=== PATIENT | male | born 1950 | race Caucasian/White ===

== ENCOUNTER 2017-01-06 10:13 | Emergency (ER) | payer MEDICARE, MEDICAID ==
[2017-01-06] MEDS ORDERED: Sodium Chloride 0.9% 10 ML Syringe FLUSH PRN (11:16)
[2017-01-06] MEDS ORDERED: Ketorolac 30 MG/ML SDV IVPUSH ONE (11:16)
[2017-01-06] MEDS ORDERED: HYDROmorphone 1 MG/ML Syringe IVPUSH ONE (11:16)
--- NOTE | 2017-01-06 11:23 | EDM.PDOC ---
ED HPI GENERAL MEDICAL PROBLEM - General Chief Complaint: Back Pain or Injury Stated Complaint: Low back pain Time Seen by Provider: 01/06/17 11:05 Source of Information: Reports: Patient, RN Notes Reviewed History Limitations: Reports: No Limitations - History of Present Illness INITIAL COMMENTS - FREE TEXT/NARRATIVE: 66 year old male presents to the ED with complaints of low back pain that does not radiate. He had low back surgery with Dr. Samayoa on 12/19/16. He's had severe pain since his surgery. He had a f/u on 01/02/17 and was told everything was good. He is currently taking Dilaudid 2mg every 6 hours and Valium 5mg every 8 hours. He last took these around 6am this morning. He has no numbness, tingling or weakness in his lower extremities. Denies saddle anesthesia or loss of bowel/ bladder function. He is able to ambulate without difficulty. Pain seems to be better when he's standing. He has an appointment the beginning of january. No fever or chills. Lower Back Pain Score (Numeric/FACES): 10 - Related Data Allergies Allergy/AdvReac Type Severity Reaction Status Date / Time codeine Allergy Cannot Verified 01/06/17 10:35 Remember Home Meds: Home Meds Lisinopril/Hydrochlorothiazide [Lisinopril-Hctz 10-12.5 mg Tab] 0 mg PO DAILY [History] Aspirin [Halfprin] 81 mg PO DAILY 03/15/15 [History] Diazepam [Valium] 5 mg PO Q6H PRN #10 tablet 01/06/17 [Rx] Diazepam [Valium] 5 mg PO Q8H PRN 01/06/17 [History] HYDROmorphone [Dilaudid] 2 mg PO Q4H #10 tablet 01/06/17 [Rx] HYDROmorphone [Dilaudid] 2 mg PO Q6H PRN 01/06/17 [History] atorvaSTATin [Lipitor] 1 tab PO DAILY 01/06/17 [History] Past Medical History Cardiovascular History: Reports: High Cholesterol, Hypertension - Past Surgical History GI Surgical History: Reports: Appendectomy Musculoskeletal Surgical History: Reports: Other (See Below) Other Musculoskeletal Surgeries/Procedures:: spinal fusion Social & Family History - Tobacco Use Smoking Status *Q: Never Smoker Years of Tobacco use: 40 Used Tobacco, but Quit: Yes Month Tobacco Last Used: 8 yrs Second Hand Smoke Exposure: No - Caffeine Use Caffeine Use: Reports: Coffee, Soda - Recreational Drug Use Recreational Drug Use: No Drug Use in Last 12 Months: Yes Recreational Drug Type: Reports: Marijuana/Hashish Recreational Drug Use Frequency: Rarely Recreational Drug Last Use: 11/03/13 ED ROS GENERAL - Review of Systems Review Of Systems: See Below Constitutional: Reports: No Symptoms. Denies: Fever, Chills Respiratory: Reports: No Symptoms Cardiovascular: Reports: No Symptoms Musculoskeletal: Reports: Back Pain, Muscle Pain Skin: Reports: Wound Neurological: Denies: Numbness, Tingling, Difficulty Walking, Weakness ED EXAM,LOWER BACK PAIN/INJURY - Physical Exam Exam: See Below Exam Limited By: No Limitations General Appearance: Alert, WD/WN, Anxious, Moderate Distress Respiratory/Chest: No Respiratory Distress, Lungs Clear Cardiovascular: Regular Rate, Rhythm Back Exam: Normal Inspection, Muscle Spasm, Paraspinal Tenderness. No: Vertebral Tenderness Extremities: Normal Inspection, Normal Range of Motion, Non-Tender Neurological: Alert, Normal Dorsiflexion, Normal Plantar Flexion, Normal Gait, No Motor/Sensory Deficits, Other (surgical incision is well approximated with no erytema or drainage. No tenderness at incision site. ). No: Straight Leg Raise (L), Straight Leg Raise (R), Saddle Anesthesia, Difficulty Walking Skin Exam: Warm, Dry, Intact Course - Vital Signs Last Recorded V/S: Last Vital Signs Temp 98 F 01/06/17 10:21 Pulse 69 01/06/17 10:21 Resp 18 01/06/17 10:21 BP 144/70 H 01/06/17 10:21 Pulse Ox 99 01/06/17 10:21 - Orders/Labs/Meds Orders: Active Orders 24 hr Category Date Time Status Peripheral IV Care [RC] . DIRECTED Care 01/06/17 11:16 Active Sodium Chloride 0.9% [Saline Flush] Med 01/06/17 11:16 Active 10 ml FLUSH ASDIRECTED PRN Peripheral IV Insertion Adult [OM.PC] Stat Oth 01/06/17 11:15 Ordered Medication Orders Sodium Chloride (Saline Flush) 10 ml FLUSH ASDIRECTED PRN PRN Reason: Keep Vein Open Last Admin: 01/06/17 11:41 Dose: 10 ml Meds: Medications Generic Name Dose Route Start Last Admin Trade Name Kennyq PRN Reason Stop Dose Admin Sodium Chloride 10 ml 01/06/17 11:16 01/06/17 11:41 Saline Flush FLUSH 10 ml ASDIRECTED PRN Administration Keep Vein Open Discontinued Medications Generic Name Dose Route Start Last Admin Trade Name Kennyq PRN Reason Stop Dose Admin Diazepam 5 mg 01/06/17 11:16 01/06/17 11:39 Valium IM 01/06/17 11:17 5 mg ONETIME ONE Administration Hydromorphone HCl 1 mg 01/06/17 11:16 01/06/17 11:34 Dilaudid IVPUSH 01/06/17 11:17 1 mg ONETIME ONE Administration Hydromorphone HCl 1 mg 01/06/17 12:12 01/06/17 12:20 Dilaudid IVPUSH 01/06/17 12:13 1 mg ONETIME STA Administration Ketorolac Tromethamine 30 mg 01/06/17 11:16 01/06/17 11:32 Toradol IVPUSH 01/06/17 11:17 30 mg ONETIME ONE Administration Ketorolac Tromethamine Confirm 01/06/17 11:26 01/06/17 11:39 Toradol Administered 01/06/17 11:27 Not Given Dose 90 mg .ROUTE .STK-MED ONE - Re-Assessments/Exams Free Text/Narrative Re-Assessment/Exam: On arrival, patient's pain was 10/10. Pain improved to acceptable level, 6/10 after 2mg of Dilaudid, Toradol, and Valium. Will have him start a schedule with his dilaudid and valium. He was given a small prescription for Dilaudid and Valium to get him through until he can be seen in the clinic. He was instructed to f/u with Dr. Samayoa or Dolores Mock, whoever can see him first. Discharge instructions as documented. Departure - Departure Time of Disposition: 12:26 Disposition: Home, Self-Care 01 Condition: Good Clinical Impression: Postoperative back pain - Discharge Information Prescriptions: Diazepam [Valium] 5 mg PO Q6H PRN #10 tablet PRN Reason: Muscle Spasm HYDROmorphone [Dilaudid] 2 mg PO Q4H #10 tablet Referrals: Dolores Mock PA [Primary Care Provider] - Forms: ED Department Discharge Additional Instructions: Call Dr. Samayoa's office and update them regarding your pain Follow-up with them this week and/or with Dolores Samples for medication refills as needed Return to ER if you are unable to manage your pain Recommended day schedule: Dilaudid 2mg every 4 hours: take at 8am, noon, 4pm, 8pm. Valium 5mg every 6 hours: take at 6am, noon, and 6pm Continue with post-operative instructions. - My Orders Last 24 Hours: My Active Orders 01/06/17 11:15 Peripheral IV Insertion Adult [OM.PC] Stat 01/06/17 11:16 Peripheral IV Care [RC] . DIRECTED Sodium Chloride 0.9% [Saline Flush] 10 ml FLUSH ASDIRECTED PRN - Assessment/Plan Last 24 Hours: My Active Orders 01/06/17 11:15 Peripheral IV Insertion Adult [OM.PC] Stat 01/06/17 11:16 Peripheral IV Care [RC] . DIRECTED Sodium Chloride 0.9% [Saline Flush] 10 ml FLUSH ASDIRECTED PRN
[2017-01-06] MEDS ORDERED: Ketorolac 30 MG/ML SDV ONE (11:26)
[2017-01-06] MEDS ORDERED: HYDROmorphone 1 MG/ML Syringe IVPUSH STA (12:12)
[2017-01-06 13:16] VITALS: BP 137/70
== END 2017-01-06 12:45 | disposition home or self-care (01) ==
LOC: JD.ED 10:13
DX: G89.18 Other acute postprocedural pain (principal); M54.5 Low back pain; I10 Essential (primary) hypertension; E78.00 Pure hypercholesterolemia, unspecified; Z90.49 Acquired absence of other specified parts of digestive tract; Z98.1 Arthrodesis status; Z79.82 Long term (current) use of aspirin; Z79.899 Other long term (current) drug therapy; Z88.5 Allergy status to narcotic agent
CPT/HCPCS: 96372; 96374; 96375; 96376; 99283; J1170; J1885; J3360; J7050

== ENCOUNTER 2017-04-15 08:46 | Day surgery (SDC) | payer MEDICARE, MEDICAID ==
[2017-04-15] MEDS: Polymyxin B/Trimethoprim 10 ML Bottle EYELF SCH ×4 (09:55→11:46)
[2017-04-15] MEDS: Brimonidine 0.2% Ophth Soln 5 ML Bottle EYELF SCH ×3 (10:00→11:46)
[2017-04-15] MEDS: Phenylephrine 2.5% Ophth Soln 2 ML Bot EYELF SCH ×6 (10:08→11:24)
--- NOTE | 2017-04-15 10:39 | PCM.PREANE ---
Preanesthetic Assessment - Anesthesia/Transfusion/Family Hx Anesthesia History: Prior Anesthesia Without Reaction Family History of Anesthesia Reaction: No Transfusion History: No Prior Transfusion(s) Intubation History: Unknown - Review of Systems General: No Symptoms Pulmonary: No Symptoms (on occasion smokes marijuana for back pain) Cardiovascular: No Symptoms (HTN) Gastrointestinal: No Symptoms Neurological: No Symptoms (chronic lower back pain/ mini stroke 4 years ago) Other: Reports: Easy Bruising, Depression - Physical Assessment NPO Status Date: 04/15/17 NPO Status Time: 05:30 Pulse: 64 O2 Sat by Pulse Oximetry: 98 Respiratory Rate: 16 Blood Pressure: 136/70 Temperature: 36.6 C Vital Signs: Last Vital Signs Temp 36.6 C 04/15/17 09:38 Pulse 64 04/15/17 09:38 Resp 16 04/15/17 09:38 BP 136/70 04/15/17 09:38 Pulse Ox 98 04/15/17 09:38 Height: 18.59 m Weight: 95.254 kg ASA Class: 2 Mental Status: Alert & Oriented x3 Airway Class: Mallampati = 2 Dentition: Reports: Dentures (upper and lower not currently present with patient.) Thyro-Mental Finger Breadths: 3 Mouth Opening Finger Breadths: 3 ROM/Head Extension: Full Lungs: Clear to Auscultation, Normal Respiratory Effort Cardiovascular: Regular Rate, Regular Rhythm, No Murmurs - Allergies Allergies/Adverse Reactions: Allergies Allergy/AdvReac Type Severity Reaction Status Date / Time codeine Allergy Cannot Verified 04/14/17 14:33 Remember - Anesthesia Plan Pre-Op Medication Ordered: None - Acknowledgements Anesthesia Type Planned: MAC Pt an Appropriate Candidate for the Planned Anesthesia: Yes Alternatives and Risks of Anesthesia Discussed w Pt/Guardian: Yes Pt/Guardian Understands and Agrees with Anesthesia Plan: Yes PreAnesthesia Questionnaire Cardiovascular History: Reports: High Cholesterol, Hypertension - Past Surgical History GI Surgical History: Reports: Appendectomy Musculoskeletal Surgical History: Reports: Other (See Below) Other Musculoskeletal Surgeries/Procedures:: spinal fusion - SUBSTANCE USE Smoking Status *Q: Never Smoker Second Hand Smoke Exposure: No Recreational Drug Use History: No Recreational Drug Type: Reports: Marijuana/Hashish Recreational Drug Last Use: 11/03/13 - HOME MEDS Home Medications: Home Meds Lisinopril/Hydrochlorothiazide [Lisinopril-Hctz 10-12.5 mg Tab] 0 mg PO DAILY [History] Aspirin [Halfprin] 81 mg PO DAILY 03/15/15 [History] atorvaSTATin [Lipitor] 1 tab PO DAILY 01/06/17 [History] Cyclobenzaprine [Flexeril] 5 mg PO Q8H PRN 04/14/17 [History] Hydrocodone/Acetaminophen [Hydrocodon-Acetaminophen 5-325] 1 - 2 tab PO Q6H [History] - CURRENT (IN HOUSE) MEDS Current Meds: Current Medications Brimonidine Tartrate (Alphagan 0.2% Ophth Soln) 0 ml EYELF TID ANU Last Admin: 04/15/17 10:00 Dose: 1 drop Cefuroxime Sodium (Zinacef) 0 mg EYELF ASDIRECTED ANU Lidocaine HCl (Xylocaine-Mpf 1%) 10 ml INJECT ASDIRECTED ANU Phenylephrine HCl (Celso-Synephrine 2.5% Ophth Soln) 0 ml EYELF ASDIRECTED ANU Last Admin: 04/15/17 10:25 Dose: 1 drop Pilocarpine HCl (Pilocar 4% Ophth Soln) 0 ml EYELF ASDIRECTED ANU Polymyxin/Trimethoprim Sulfate (Polytrim Ophth Soln) 0 ml EYELF ASDIRECTED ANU Last Admin: 04/15/17 09:55 Dose: 1 drop Tetracaine HCl (Tetracaine 0.5% Steri-Unit Barby) 0 ml EYELF ASDIRECTED ANU Tropicamide (Mydriacyl 1% Ophth Soln) 0 ml EYELF ASDIRECTED AUN Stop: 04/18/17 08:39 Last Admin: 04/15/17 10:20 Dose: 1 drop
[2017-04-15] MEDS: Cefuroxime 10 MG/ML SYRINGE EYELF SCH ×2 (11:06→11:45)
[2017-04-15] MEDS: Lidocaine 1% PF 2 ML SDV INJECT SCH ×2 (11:06→11:38)
[2017-04-15] MEDS: Tetracaine HCl/PF 0.5% 4 ML Bottle EYELF SCH ×3 (11:06→11:39)
[2017-04-15] MEDS: Pilocarpine 4% Ophth Soln 15 ML Bot EYELF SCH ×2 (11:07→11:46)
--- NOTE | 2017-04-15 11:51 | PCM48HPAN ---
Post Anesthesia Note - EVALUATION WITHIN 48HRS OF ANESTHETIC Vital Signs in Normal Range: Yes Patient Participated in Evaluation: Yes Respiratory Function Stable: Yes Airway Patent: Yes Cardiovascular Function Stable: Yes Hydration Status Stable: Yes Pain Control Satisfactory: Yes Nausea and Vomiting Control Satisfactory: Yes Mental Status Recovered: Yes
[2017-04-15 12:10] VITALS: BP 143/75
== END 2017-04-15 12:00 | disposition home or self-care (01) ==
LOC: JD.SDS 08:46
PROVIDERS: ATTEND Ophthalmology
DX: H25.012 Cortical age-related cataract, left eye (principal); H11.153 Pinguecula, bilateral; H02.831 Dermatochalasis of right upper eyelid; H02.834 Dermatochalasis of left upper eyelid; I10 Essential (primary) hypertension; F32.9 Major depressive disorder, single episode, unspecified; E78.00 Pure hypercholesterolemia, unspecified; Z85.820 Personal history of malignant melanoma of skin; Z87.891 Personal history of nicotine dependence; Z79.82 Long term (current) use of aspirin; Z79.891 Long term (current) use of opiate analgesic; Z79.899 Other long term (current) drug therapy; Z90.49 Acquired absence of other specified parts of digestive tract; Z88.5 Allergy status to narcotic agent; Z98.1 Arthrodesis status; Z96.1 Presence of intraocular lens; Z98.41 Cataract extraction status, right eye
CPT/HCPCS: 66984; J0697; A9270-GY; C1780

== ENCOUNTER 2017-04-17 08:20 | Emergency (ER) | payer MEDICARE, MEDICAID ==
[2017-04-17 08:29] VITALS: BP 171/82
--- NOTE | 2017-04-17 10:09 | EDM.PDOC ---
ED HPI GENERAL MEDICAL PROBLEM - General Chief Complaint: Back Pain or Injury Stated Complaint: BACK PAIN Time Seen by Provider: 04/17/17 10:00 Source of Information: Reports: Patient History Limitations: Reports: No Limitations - History of Present Illness INITIAL COMMENTS - FREE TEXT/NARRATIVE: 66-year-old male primarily presents to the ED for chronic pain back me pain management. Shunt had lumbar spine surgery carried out by Dr. Samayoa December 23 of this year. He states he is actually worse now than he was before he had surgery. He has another follow-up appointment next week. He slipping to get some medication to help get to the pain until that time. He is set up for chronic pain management physician. He's been using Tylenol Motrin and high doses with no relief of pain. He was on Dilaudid 2 mg 4 times a day in the past. He states the pain is confined to his back and does not radiate down any extremity. His bowel and bladder function is normal. He's walking very slow. States the pain is so bad that he cannot sleep and he cannot roll over in bed. Currently not using a gait aid. Onset: Unknown/Unsure (Back pain for many years worse since surgery in December of this year.) Duration: Chronic Location: Reports: Back (Low back pain lumbar spine.He has been fused from L34 and 5 and S1.) Quality: Reports: Ache, Throbbing, Other Severity: Severe (Constant pressure intermittent sharp stabbing pain. Rates pain at rest as 6 out of 10 and with standing or prolonged sitting as 8 or 9 out of 10.) Improves with: Reports: Other Worsens with: Reports: Movement (Lying flat is usually gets some relief of pain. Sitting and standing make it worse.) Context: Reports: Activity, Other (Chronic low back pain secondary to degenerative arthritic changes and degenerative disc disease.). Denies: Exercise, Lifting, Sick Contact Associated Symptoms: Reports: No Other Symptoms Treatments [employer]: Reports: Acetaminophen, NSAIDS Back Pain Score (Numeric/FACES): 8 - Related Data Allergies Allergy/AdvReac Type Severity Reaction Status Date / Time No Known Allergies Allergy Verified 04/17/17 08:29 Home Meds: Home Meds Lisinopril/Hydrochlorothiazide [Lisinopril-Hctz 10-12.5 mg Tab] 0 mg PO DAILY 06 /18/14 [History] Aspirin [Halfprin] 81 mg PO DAILY 03/15/15 [History] atorvaSTATin [Lipitor] 1 tab PO DAILY 01/06/17 [History] Cyclobenzaprine [Flexeril] 5 mg PO Q8H PRN 04/14/17 [History] Cyclobenzaprine [Flexeril] 10 mg PO BEDTIME #30 tablet 04/17/17 [Rx] oxyCODONE HCl/Acetaminophen [Percocet 10-325 mg Tablet] 1 - 2 each PO Q6H #36 tablet 04/17/17 [Rx] Past Medical History Cardiovascular History: Reports: High Cholesterol, Hypertension Musculoskeletal History: Reports: Back Pain, Chronic - Past Surgical History GI Surgical History: Reports: Appendectomy Musculoskeletal Surgical History: Reports: Other (See Below) Other Musculoskeletal Surgeries/Procedures:: spinal fusion Social & Family History - Tobacco Use Smoking Status *Q: Never Smoker Years of Tobacco use: 40 Used Tobacco, but Quit: Yes Month Tobacco Last Used: 8 yrs Second Hand Smoke Exposure: No - Caffeine Use Caffeine Use: Reports: Coffee - Recreational Drug Use Recreational Drug Use: Yes Drug Use in Last 12 Months: Yes Recreational Drug Type: Reports: Marijuana/Hashish Recreational Drug Use Frequency: Monthly Recreational Drug Last Use: 11/03/13 - Living Situation & Occupation Living situation: Reports: with Spouse Occupation: Disabled ED ROS GENERAL - Review of Systems Review Of Systems: See Below Constitutional: Reports: Malaise, Fatigue, Weight Loss (From not getting adequate sleep.). Denies: Fever, Chills HEENT: Reports: No Symptoms Respiratory: Reports: Cough (Cough intermittently particularly in the mornings. Of note he smokes pack and half cigarettes per day.), Sputum Cardiovascular: Reports: No Symptoms Endocrine: Reports: No Symptoms GI/Abdominal: Reports: No Symptoms. Denies: Constipation : Reports: Other (Nocturia 3.) Musculoskeletal: Reports: Back Pain Skin: Reports: No Symptoms (Without radiculopathy.) Neurological: Reports: No Symptoms Psychiatric: Reports: No Symptoms Hematologic/Lymphatic: Reports: No Symptoms Immunologic: Reports: No Symptoms ED EXAM,LOWER BACK PAIN/INJURY - Physical Exam Exam: See Below Exam Limited By: No Limitations General Appearance: Alert, WD/WN, Mild Distress Throat/Mouth: Normal Inspection, Normal Lips, Normal Oropharynx, Other ( Oropharynx is inflamed from cigarette smoking.) Respiratory/Chest: Lungs Clear, Wheezing Cardiovascular: Normal Peripheral Pulses, Regular Rate, Rhythm, No Edema, No Murmur GI/Abdominal: Normal Bowel Sounds, Soft, Non-Tender, No Organomegaly Back Exam: Other (Examination his back shows a midline lumbar spine surgical scar which is healing well. There is minimal spur paraspinal muscle spasm and only pain unrelieved firm deep palpation over the L3 L4 L5 facet joints bilaterally. His range of motion is severely curtailed. He cannot reach his patellas with his hands. He has loss of 20 lateral rotation bilaterally. His lower back is rigid and he has little to no extension of the back.) Extremities: Normal Inspection, Normal Range of Motion, Non-Tender, Normal Capillary Refill, Pedal Edema Neurological: Normal Gait, Normal Reflexes, Oriented x 3, Straight Leg Raise (L) , Straight Leg Raise (R) (40 on the left 40 on the right.), Difficulty Walking DTR - Lower Extremities: 0: Ankle (R), Ankle (L), 2+: Knee (R), Knee (L) Psychiatric: Normal Affect, Normal Mood Skin Exam: Warm, Dry, Intact, Normal Color, No Rash Course - Vital Signs Last Recorded V/S: Last Vital Signs Temp 35.9 C 04/17/17 08:25 Pulse 64 04/17/17 08:25 Resp 18 04/17/17 08:25 BP 171/82 H 04/17/17 08:25 Pulse Ox 100 04/17/17 08:25 - Radiology Interpretation Free Text/Narrative:: 66-year-old male attends the ED with chronic low back pain not improved after surgery with surgical fusion by Dr. Samayoa on December 23 of this year. Patient has had chronic low back pain for several years. No radiculopathy into either upper extremity no problems with his bowel or bladder function. He came to the ED seeking pain management. Follow-up appointment pending with pain management physician in 7 days time. On my examination I find no signs of infection. Surgical wound appears to be healing well. Will treat him with Percocet 10/3/25 milligram tablets one or 2 every 4-6 hours needed for pain relief 20 tablets. Axial 10 mg at at bedtime to help sleep only. 30 tablets provided Departure - Departure Time of Disposition: 10:04 Disposition: Home, Self-Care 01 Condition: Fair Clinical Impression: Chronic bilateral low back pain Qualifiers: Sciatica presence: without sciatica Qualified Code(s): M54.5 - Low back pain - Discharge Information Prescriptions: Cyclobenzaprine [Flexeril] 10 mg PO BEDTIME #30 tablet oxyCODONE HCl/Acetaminophen [Percocet 10-325 mg Tablet] 1 - 2 each PO Q6H #36 tablet Instructions: Back Pain, Adult, [id number] Referrals: Dolores Mock PA [Primary Care Provider] - Forms: ED Department Discharge Additional Instructions: Evaluation the emergency room today in regards to severe chronic low back pain not improved by recent lumbar spine surgery in December of this year. Surgery was performed due to extensive degenerative arthritis and degenerative disc disease. The exact nature of what was done is not available to me at this time. History suggests multi-level spinal fusion and foraminotomies to release arthritic pressure on the nerves. It appears that the surgery itself was certainly unsuccessful as you're haviing more pain now than you're having prior to the surgery. Visit to the ED today is essentially for pain management. For some reason your primary care provider is not providing medication for chronic pain at this time. Treatment will be Percocet 10/325 mg tabs one or 2 every 4-6 hours for pain relief as needed. Flexeril 10 mg primarily at bedtime to help with muscle spasm and aid sleep. Follow-up with pain management physician on April 24 as planned.
== END 2017-04-17 10:24 | disposition home or self-care (01) ==
LOC: JD.ED 08:20
DX: G89.29 Other chronic pain (principal); M54.5 Low back pain; I10 Essential (primary) hypertension; E78.00 Pure hypercholesterolemia, unspecified; Z98.1 Arthrodesis status; F17.210 Nicotine dependence, cigarettes, uncomplicated; Z79.82 Long term (current) use of aspirin; Z79.899 Other long term (current) drug therapy
CPT/HCPCS: 99283

== ENCOUNTER 2017-07-10 19:52 | Emergency (ER) | payer MEDICARE, MEDICAID ==
--- NOTE | 2017-07-10 20:30 | EDM.PDOC ---
ED HPI GENERAL MEDICAL PROBLEM - General Chief Complaint: Cardiovascular Problem Stated Complaint: POSS RASH CHILLS NAUSEA Time Seen by Provider: 07/10/17 20:21 - History of Present Illness INITIAL COMMENTS - FREE TEXT/NARRATIVE: 66-year-old male presents emergency room with fevers chills waiting systolic rash and a little bit of a cough. This is been going on for 3-4 days. He just hasn't felt well no significant nausea no real abdominal pain patient of diarrhea a little bit of a cough and some congestion. Patient is not a chest pain or chest pressure. Interestingly when patient came in he was noted to be in atrial fibrillation he is unaware of ever having this in the past and is unaware of when this possibly could've started. Patient has been battling chronic back pain he had a back surgery probably made things worse this was done in December 2016 he's had no procedures since that time. Patient is currently treated for hypertension hyperlipidemia. Patient has a questionable history of a TIA about 4 years ago - Related Data Allergies Allergy/AdvReac Type Severity Reaction Status Date / Time No Known Allergies Allergy Verified 07/10/17 19:59 Home Meds: Home Meds Lisinopril/Hydrochlorothiazide [Lisinopril-Hctz 10-12.5 mg Tab] 1 tab PO DAILY 11/03/13 [History] Aspirin [Halfprin] 81 mg PO DAILY 03/15/15 [History] atorvaSTATin [Lipitor] 1 tab PO DAILY 01/06/17 [History] oxyCODONE HCl/Acetaminophen [Percocet 10-325 mg Tablet] 1 tab PO Q6H 07/10/17 [ History] Metoprolol Tartrate [Lopressor] 25 mg PO Q12HR #60 tab 07/11/17 [Rx] Rivaroxaban [Xarelto] 20 mg PO Q24H #30 tablet 07/11/17 [Rx] Past Medical History Cardiovascular History: Reports: High Cholesterol, Hypertension Musculoskeletal History: Reports: Back Pain, Chronic - Past Surgical History GI Surgical History: Reports: Appendectomy Musculoskeletal Surgical History: Reports: Other (See Below) Other Musculoskeletal Surgeries/Procedures:: spinal fusion Social & Family History - Tobacco Use Smoking Status *Q: Former Smoker Years of Tobacco use: 40 Used Tobacco, but Quit: No Month Tobacco Last Used: 8 yrs Second Hand Smoke Exposure: No - Caffeine Use Caffeine Use: Reports: Coffee - Recreational Drug Use Recreational Drug Use: Yes Drug Use in Last 12 Months: Yes Recreational Drug Type: Reports: Marijuana/Hashish Recreational Drug Use Frequency: Monthly Recreational Drug Last Use: 11/03/13 - Living Situation & Occupation Living situation: Reports: with Spouse Occupation: Disabled ED ROS GENERAL - Review of Systems Review Of Systems: See Below Constitutional: Reports: Fever, Chills. Denies: No Symptoms HEENT: Reports: No Symptoms Cardiovascular: Reports: No Symptoms Endocrine: Reports: No Symptoms GI/Abdominal: Reports: Nausea. Denies: Constipation, Diarrhea, Vomiting Musculoskeletal: Reports: Back Pain. Denies: No Symptoms Skin: Denies: No Symptoms Neurological: Reports: No Symptoms Psychiatric: Reports: No Symptoms Hematologic/Lymphatic: Reports: No Symptoms Immunologic: Reports: No Symptoms ED EXAM, GENERAL - Physical Exam Exam: See Below Exam Limited By: No Limitations General Appearance: Alert, No Apparent Distress Eye Exam: Bilateral Eye: Normal Inspection Ears: Normal External Exam, Normal Canal, Hearing Grossly Normal, Normal TMs Nose: Normal Inspection, Normal Mucosa, No Blood Throat/Mouth: Normal Inspection, Normal Lips, Normal Teeth, Normal Gums, Normal Oropharynx, Normal Voice, No Airway Compromise Head: Atraumatic, Normocephalic Neck: Normal Inspection, Supple, Non-Tender, Full Range of Motion. No: Lymphadenopathy (L), Lymphadenopathy (R) Respiratory/Chest: No Respiratory Distress, Lungs Clear Cardiovascular: Normal Peripheral Pulses, No Edema, Irregularly Irregular GI/Abdominal: Normal Bowel Sounds, Soft, Non-Tender Back Exam: Normal Inspection. No: CVA Tenderness (L), CVA Tenderness (R) Extremities: Normal Inspection, No Pedal Edema Neurological: Alert, Oriented, Normal Cognition Course - Vital Signs Last Recorded V/S: Last Vital Signs Temp 35.8 C 07/10/17 19:59 Pulse 112 H 07/10/17 21:21 Resp 22 H 07/10/17 19:59 BP 159/91 H 07/10/17 21:21 Pulse Ox 99 07/10/17 19:59 - Orders/Labs/Meds Orders: Active Orders 24 hr Category Date Time Status EKG 12 Lead [EKG Documentation Completion] [RC] STAT Care 07/10/17 20:12 Active Abdomen Pelvis w Cont [CT] Stat Exams 07/10/17 22:09 Taken Chest 1V Frontal [CR] Stat Exams 07/10/17 20:40 Taken Labs: Laboratory Tests 07/10/17 07/10/17 07/10/17 Range/Units 20:05 20:05 20:05 WBC 6.33 (4.23-9.07) K/mm3 RBC 5.74 (4.63-6.08) M/mm3 Hgb 17.8 H (13.7-17.5) gm/L Hct 52.2 H (40.1-51.0) % MCV 90.9 (79.0-92.2) fl MCH 31.0 (25.7-32.2) pg MCHC 34.1 (32.2-35.5) g/dl RDW Std Deviation 43.0 (35.1-43.9) fL Plt Count 163 (163-337) K/mm3 MPV 11.1 (9.4-12.3) fl Neutrophils % (Manual) 55 (40-60) % Band Neutrophils % 0 (0-10) % Lymphocytes % (Manual) 26 (20-40) % Atypical Lymphs % 0 % Monocytes % (Manual) 19 H (2-10) % Eosinophils % (Manual) 0 L (0.8-7.0) % Basophils % (Manual) 0 L (0.2-1.2) Platelet Estimate Adequate Plt Morphology Comment Normal RBC Morph Comment Normal PT 10.0 (8.0-13.0) SECONDS INR 0.94 APTT 28 (22-36) SECONDS Sodium 137 (136-145) mEq/L Potassium 3.7 (3.5-5.1) mEq/L Chloride 99 (98-107) mEq/L Carbon Dioxide 23 (21-32) mEq/L Anion Gap 18.7 H (5-15) BUN 19 H (7-18) mg/dL Creatinine 1.2 (0.7-1.3) mg/dL Est Cr Clr Drug Dosing 67.51 mL/min Estimated GFR (MDRD) > 60 (>60) mL/min BUN/Creatinine Ratio 15.8 (14-18) Glucose 190 H (80-115) mg/dL Uric Acid (3.5-7.2) mg/dL Calcium 8.8 (8.5-10.1) mg/dL Magnesium 2.1 (1.8-2.4) mg/dl Total Bilirubin 0.3 (0.2-1.0) mg/dL Direct Bilirubin < 0.05 (0.0-0.2) mg/dl Indirect Bilirubin TNP AST 19 (15-37) U/L ALT 28 (16-63) U/L Alkaline Phosphatase 79 (46-116) U/L Troponin I 0.020 (0.00-0.056) ng/mL Total Protein 7.7 (6.4-8.2) g/dl Albumin 3.9 (3.4-5.0) g/dl Globulin 3.8 gm/dL Albumin/Globulin Ratio 1.0 (1-2) TSH 3rd Generation 1.755 (0.358-3.74) uIU/mL Urine Color (Yellow) Urine Appearance (Clear) Urine pH (5.0-8.0) Ur Specific [place] (1.005-1.030) Urine Protein (Negative) Urine Glucose (UA) (Negative) Urine Ketones (Negative) Urine Occult Blood (Negative) Urine Nitrite (Negative) Urine Bilirubin (Negative) Urine Urobilinogen (0.2-1.0) Ur Leukocyte Esterase (Negative) Urine RBC (0-5) /hpf Urine WBC (0-5) /hpf Ur Epithelial Cells (0-5) /hpf Urine Bacteria (FEW) /hpf Hyaline Casts (0-5) /lpf Fine Granular Casts (0-5) /lpf Urine Mucus (FEW) /hpf 07/10/17 07/10/17 Range/Units 20:05 21:27 WBC (4.23-9.07) K/mm3 RBC (4.63-6.08) M/mm3 Hgb (13.7-17.5) gm/L Hct (40.1-51.0) % MCV (79.0-92.2) fl MCH (25.7-32.2) pg MCHC (32.2-35.5) g/dl RDW Std Deviation (35.1-43.9) fL Plt Count (163-337) K/mm3 MPV (9.4-12.3) fl Neutrophils % (Manual) (40-60) % Band Neutrophils % (0-10) % Lymphocytes % (Manual) (20-40) % Atypical Lymphs % % Monocytes % (Manual) (2-10) % Eosinophils % (Manual) (0.8-7.0) % Basophils % (Manual) (0.2-1.2) Platelet Estimate Plt Morphology Comment RBC Morph Comment PT (8.0-13.0) SECONDS INR APTT (22-36) SECONDS Sodium (136-145) mEq/L Potassium (3.5-5.1) mEq/L Chloride (98-107) mEq/L Carbon Dioxide (21-32) mEq/L Anion Gap (5-15) BUN (7-18) mg/dL Creatinine (0.7-1.3) mg/dL Est Cr Clr Drug Dosing mL/min Estimated GFR (MDRD) (>60) mL/min BUN/Creatinine Ratio (14-18) Glucose (80-115) mg/dL Uric Acid 5.0 (3.5-7.2) mg/dL Calcium (8.5-10.1) mg/dL Magnesium (1.8-2.4) mg/dl Total Bilirubin (0.2-1.0) mg/dL Direct Bilirubin (0.0-0.2) mg/dl Indirect Bilirubin AST (15-37) U/L ALT (16-63) U/L Alkaline Phosphatase (46-116) U/L Troponin I (0.00-0.056) ng/mL Total Protein (6.4-8.2) g/dl Albumin (3.4-5.0) g/dl Globulin gm/dL Albumin/Globulin Ratio (1-2) TSH 3rd Generation (0.358-3.74) uIU/mL Urine Color Yellow (Yellow) Urine Appearance Clear (Clear) Urine pH 6.0 (5.0-8.0) Ur Specific [place] > or = 1.030 (1.005-1.030) Urine Protein 1+ H (Negative) Urine Glucose (UA) Negative (Negative) Urine Ketones Negative (Negative) Urine Occult Blood 1+ H (Negative) Urine Nitrite Negative (Negative) Urine Bilirubin Negative (Negative) Urine Urobilinogen 0.2 (0.2-1.0) Ur Leukocyte Esterase Negative (Negative) Urine RBC 0-5 (0-5) /hpf Urine WBC 0-5 (0-5) /hpf Ur Epithelial Cells Not seen (0-5) /hpf Urine Bacteria Rare (FEW) /hpf Hyaline Casts 0-5 (0-5) /lpf Fine Granular Casts 0-5 (0-5) /lpf Urine Mucus Many H (FEW) /hpf Meds: Medications Discontinued Medications Generic Name Dose Route Start Last Admin Trade Name Ezequiel PRN Reason Stop Dose Admin Diatrizoate Meglum/Diatrizoate Sod 90 ml 07/10/17 23:56 07/11/17 00:31 Gastrografin 37% PO 07/10/17 23:57 90 ml ONETIME ONE Administration Lactated Ringer's 1,000 mls @ 999 mls/hr 07/10/17 22:08 Ringers, Lactated IV 07/10/17 23:08 .BOLUS ONE Iopamidol 100 ml 07/10/17 23:56 07/11/17 00:31 [id number] (76%) IVPUSH 07/10/17 23:57 100 ml ONETIME ONE Administration Metoprolol Tartrate 25 mg 07/10/17 21:08 07/10/17 21:21 Lopressor PO 07/10/17 21:09 25 mg ONETIME ONE Administration - Re-Assessments/Exams Free Text/Narrative Re-Assessment/Exam: 07/10/17 22:05 Labs not all that helpful like her lites look okay he's got some mild dehydration liver function studies look okay on exam he's got an abdominal wall with what could be a [place] in overall strange constellation intermittent abdominal discomfort we'll go ahead and get an abdominal CT he should be started on anticoagulation but with the potential of something ominous going on in his abdomen I would not start this yet patient's pulse has come down the given metoprolol tartrate 25 mg by mouth. 07/11/17 01:09 Patient responded favorably to the metoprolol his pulse came down 90s. Laboratory evaluation showed a relative polycythemia, he could have some dehydration as well. He's had no history of polycythemia in the past. CT evaluation of the abdomen pelvis was negative for any acute changes. Uric acid was 5. He is get new onset A. fib onset unknown we'll continue Lopressor 25 mg twice a day he should be anticoagulated. He'll be started on Xaralto, 20 mg daily He does not have a regular physician but they agree to follow-up in the clinic [facility]. With this polycythemia given need a recheck in a polycythemia to see if this resolves with increasing his fluid intake. Did discuss the risk and benefit of being on anticoagulation patient wish to pursue this. Departure - Departure Time of Disposition: 01:20 Disposition: Home, Self-Care 01 Clinical Impression: Atrial fibrillation, Abdominal discomfort, Polycythemia due to fall in plasma volume Prescriptions: Metoprolol Tartrate [Lopressor] 25 mg PO Q12HR #60 tab Rivaroxaban [Xarelto] 20 mg PO Q24H #30 tablet Referrals: PCP,None [Primary Care Provider] - Forms: ED Department Discharge Additional Instructions: Return to emergency room if any questions problems worsening symptoms. Follow-up in the Hospital clinic early next week for recheck [phone] - My Orders Last 24 Hours: My Active Orders 07/10/17 20:12 EKG 12 Lead [EKG Documentation Completion] [RC] STAT 07/10/17 20:40 Chest 1V Frontal [CR] Stat 07/10/17 22:09 Abdomen Pelvis w Cont [CT] Stat - Assessment/Plan Last 24 Hours: My Active Orders 07/10/17 20:12 EKG 12 Lead [EKG Documentation Completion] [RC] STAT 07/10/17 20:40 Chest 1V Frontal [CR] Stat 07/10/17 22:09 Abdomen Pelvis w Cont [CT] Stat
[2017-07-10] MEDS ORDERED: Metoprolol Tartrate 25 MG Tab PO ONE (21:08)
[2017-07-10 21:22] VITALS: BP 159/91
[2017-07-10] MEDS ORDERED: Lactated Ringers 1,000 ML IV ONE (22:08)
[2017-07-10] MEDS ORDERED: Iopamidol 755 Mg/ML 100 ML Bottle IVPUSH ONE (23:56)
[2017-07-10] MEDS ORDERED: Diatrizoate Meglumine/Diatrizoate Sodium 37% 120 ML Bottle PO ONE (23:56)
[2017-07-11] MEDS ORDERED: Rivaroxaban 10 MG Tab PO ONE (01:23)
--- NOTE | 2017-07-11 10:48 | CR ---
Chest: Portable view of the chest was obtained. Comparison: No prior chest x-ray. Heart size and mediastinum are normal. Lungs are clear. Bony structures are grossly intact. Impression: 1. Nothing acute is identified on frontal portable chest x-ray. Diagnostic code #1
--- NOTE | 2017-07-11 10:48 | CT ---
CT abdomen and pelvis Technique: Multiple axial sections were obtained from above the dome of the diaphragm inferiorly through the pubic symphysis. Intravenous and oral contrast was utilized. Delayed images were obtained through the pelvis. Comparison: No prior abdominal imaging. Findings: Visualized lung bases show nothing acute. Liver shows no focal parenchymal abnormality. Spleen appears within normal limits. Adrenal glands show no nodule. Kidneys show symmetric contrast enhancement without hydronephrosis or mass. Pancreas is within normal limits. Minimal aneurysm is seen within the distal aorta measuring 2.7 cm in AP dimension. Atherosclerotic calcification is seen within the aorta and iliac vessels. No retroperitoneal adenopathy or mesenteric abnormalities are seen. No pelvic mass or adenopathy is appreciated. Delayed images show contrast within the distal ureters and bladder. Appendix not visualized. No free fluid or inflammatory change is seen. Impression: 1. Minimal aneurysm within the distal aorta measuring 2.7 cm in AP dimension. 2. Nothing acute is seen on CT study of the abdomen and pelvis. Diagnostic code #2 Agree with preliminary report issued by [facility] (07/11/17, 1:46 AM Central Time)
== END 2017-07-11 01:40 | disposition home or self-care (01) ==
LOC: JD.ED 19:52
DX: D75.1 Secondary polycythemia (principal); I48.91 Unspecified atrial fibrillation; E86.0 Dehydration; R10.9 Unspecified abdominal pain; I10 Essential (primary) hypertension; E78.00 Pure hypercholesterolemia, unspecified; Z87.891 Personal history of nicotine dependence; Z79.01 Long term (current) use of anticoagulants; Z79.82 Long term (current) use of aspirin; Z79.899 Other long term (current) drug therapy
CPT/HCPCS: 36415; 71045; 74177; 80048; 80076; 81001; 83735; 84443; 84484; 84550; 85025; 85610; 85730; 87804; 93005; 96360; 99284; A9270; J7120; Q9963; Q9967

== ENCOUNTER → 2019-12-09 | Day surgery (SDC) | payer MEDICARE, MEDICAID ==
[~2019-12-09] MED LIST: Phenylephrine 2.5% Ophth Soln 2 ML Bot EYELF SCH; Tropicamide 1% Ophth Soln 15 ML Bottle EYELF SCH
[2019-12-09] MEDS: Brimonidine 0.2% Ophth Soln 5 ML Bottle EYELF SCH ×2 (11:10→11:52)
[2019-12-09 13:07] VITALS: BP 137/57; PULSE 58
== END ==
LOC: JD.SDS 11:08
PROVIDERS: ATTEND Ophthalmology
DX: H26.492 Other secondary cataract, left eye (principal); I10 Essential (primary) hypertension; E78.00 Pure hypercholesterolemia, unspecified; Z96.1 Presence of intraocular lens; Z87.891 Personal history of nicotine dependence